=== PATIENT | male | born 1960 | race Caucasian/White ===

== ENCOUNTER 2018-01-14 04:30 | Observation (INO) | payer OTHER ==
[2018-01-14 05:01] LABS: ADD MAN DIFF? NO
[2018-01-14 05:02] LABS: BASOPHILS % 0.4 % (0.0-2.0); EOSINOPHILS # 0.1 10^3/ul (0.0-0.5); EOSINOPHILS % 1.7 % (0.0-7.0); HEMATOCRIT 42.2 % (42.0-52.0); LYMPHOCYTES # 1.9 10^3/ul (0.8-2.9); LYMPHOCYTES % 27.6 % (15.0-51.0); MEAN CORPUSCULAR HEMOGLOBIN 26.7 pg (29.0-33.0); MEAN CORPUSCULAR HGB CONC 33.2 g/dl (32.0-37.0); MEAN CORPUSCULAR VOLUME 80.4 fl (82.0-101.0); MEAN PLATELET VOLUME 10.6 fl (7.4-10.4); MONOCYTE # 0.7 10^3/ul (0.3-0.9); MONOCYTES % 9.7 % (0.0-11.0); NEUTROPHIL # 4.2 10^3/ul (1.6-7.5); PLATELET COUNT 181 10^3/UL (140-415); RED BLOOD COUNT 5.25 10^6/ul (4.70-6.10)
[2018-01-14 05:02] LABS: WHITE BLOOD COUNT 6.9 10^3/ul (4.8-10.8)
[2018-01-14 05:32] LABS: ANION GAP 10 (5-13); BLOOD UREA NITROGEN 22 mg/dl (7-20); CALCIUM 9.2 mg/dl (8.4-10.2); CARBON DIOXIDE 24 mmol/L (21-31); CHLORIDE 102 mmol/L (97-110); CREATININE 1.06 mg/dl (0.61-1.24); Estimated GFR > 60 mL/min (>60); POTASSIUM 4.7 mmol/L (3.5-5.1); SODIUM 136 mmol/L (135-144)
[2018-01-14 05:33] LABS: GLUCOSE 411 mg/dl (70-220)
[2018-01-14 05:43] LABS: TROPONIN-I < 0.012 ng/ml (0.000-0.120)
[2018-01-14] MEDS ORDERED: NACL 0.9% 3 ML SYG IV (06:30)
[2018-01-14] MEDS ORDERED: BISACODYL (EC) 5 MG TAB PO (06:30)
[2018-01-14] MEDS ORDERED: NITROGLYCERIN (SL) 0.4 MG TAB SL (06:30)
[2018-01-14] MEDS ORDERED: ONDANSETRON 4 MG INJ IV (06:30)
[2018-01-14] MEDS ORDERED: DEXTROSE 50% 50 ML SYRINGE IV ×2 (06:30)
[2018-01-14] MEDS ORDERED: GLUCOSE GEL 15 GRAM TUBE BUCCAL (06:30)
[2018-01-14] MEDS ORDERED: GLUCOSE GEL 15 GRAM TUBE PO ×2 (06:30)
[2018-01-14] MEDS ORDERED: DOCUSATE SODIUM 100 MG CAP PO (06:30)
[2018-01-14] MEDS ORDERED: morphine 2 MG INJ IV (06:30)
[2018-01-14] MEDS ORDERED: GLUCAGON 1 MG INJ IM (06:30)
[2018-01-14] MEDS: SOD CHLORIDE 0.9% 1,000 ML IV (06:39)
[2018-01-14] MEDS: INSULIN LISPRO 100 UNIT/ML VIAL SC (06:47)
[2018-01-14] MEDS: ENALAPRIL 20 MG TAB PO (09:49)
[2018-01-14] MEDS: ASPIRIN (EC) 81 MG TAB PO (09:49)
[2018-01-14] MEDS: CLOPIDOGREL 75 MG TAB PO (09:50)
[2018-01-14] MEDS: INSULIN ASPART [NOVOLOG] 3 ML PEN SC ×4 (09:58→20:18)
[2018-01-14 11:03] LABS: CREATINE KINASE 154 IU/L (23-200)
[2018-01-14 11:11] LABS: B-TYPE NATRIURETIC PEPTIDE 84 PG/ML (0-125)
[2018-01-14 11:15] LABS: CK INDEX 0.8; CK-MB 1.28 ng/ml (0.0-2.4); TROPONIN-I < 0.012 ng/ml (0.000-0.120)
[2018-01-14 12:22] LABS: HDL CHOLESTEROL 32 mg/dl (28-71); LDL CHOLESTEROL,CALCULATED 60 mg/dl; TRIGLYCERIDES 181 mg/dl (0-149)
[2018-01-14 12:22] LABS: CHOLESTEROL 128 mg/dl (100-200)
[2018-01-14] MEDS: INSULIN GLARGINE [LANTus] (100 UNITS/ML) SYG SC ×2 (12:29→20:03)
[2018-01-14] MEDS: LORAZEPAM 2 MG INJ IV (14:16)
[2018-01-14 14:33] LABS: HEMOGLOBIN A1C 9.3 % (0-5.9)
[2018-01-14] MEDS: SOD CHLORIDE 0.9% 100 ML (15:07)
[2018-01-14] MEDS: IOHEXOL 100 ML (15:08)
[2018-01-14] MEDS: NITROGLYCERIN AEROSOL (4.9 GM) (15:31)
[2018-01-14] MEDS: ISOSORBIDE MONONITRATE(SR)30 MG TAB PO (17:32)
[2018-01-14 18:21] LABS: CREATINE KINASE 144 IU/L (23-200)
[2018-01-14 18:34] LABS: CK INDEX 0.9; CK-MB 1.23 ng/ml (0.0-2.4); TROPONIN-I < 0.012 ng/ml (0.000-0.120)
[2018-01-14] MEDS: ACETAMINOPHEN 325 MG TAB PO (19:29)
[2018-01-14] MEDS: FUROSEMIDE 20 MG INJ IV (19:30)
[2018-01-14] MEDS: ATORVASTATIN 80 MG TAB PO ×2 (20:06→20:20)
[2018-01-14] MEDS: EZETIMIBE 10 MG TAB PO (20:06)
[2018-01-14] MEDS ORDERED: ATORVASTATIN 20 MG TAB PO (21:00)
[2018-01-14] MEDS ORDERED: NON-FORMULARY/PATIENT OWN MED (Ezetimibe/Simvastatin (Vytorin 10-40 mg Tablet) 1 EACH) PO (21:00)
[2018-01-15] MEDS: INSULIN ASPART [NOVOLOG] 3 ML PEN SC ×4 (02:15→12:38)
[2018-01-15] MEDS: ACCU-CHEK XX (02:15)
[2018-01-15] MEDS: ACETAMINOPHEN 325 MG TAB PO (05:55)
[2018-01-15 06:06] LABS: ADD MAN DIFF? NO
[2018-01-15 06:13] LABS: BASOPHILS % 0.5 % (0.0-2.0); EOSINOPHILS # 0.1 10^3/ul (0.0-0.5); EOSINOPHILS % 1.8 % (0.0-7.0); HEMOGLOBIN 13.9 g/dl (14.0-18.0); LYMPHOCYTES # 1.8 10^3/ul (0.8-2.9); LYMPHOCYTES % 24.4 % (15.0-51.0); MEAN CORPUSCULAR HEMOGLOBIN 26.4 pg (29.0-33.0); MEAN CORPUSCULAR HGB CONC 33.1 g/dl (32.0-37.0); MEAN CORPUSCULAR VOLUME 79.8 fl (82.0-101.0); MEAN PLATELET VOLUME 10.2 fl (7.4-10.4); MONOCYTE # 0.6 10^3/ul (0.3-0.9); MONOCYTES % 8.6 % (0.0-11.0); NEUTROPHIL # 4.8 10^3/ul (1.6-7.5); NEUTROPHILS % 64.3 % (39.0-77.0); PLATELET COUNT 195 10^3/UL (140-415); RED BLOOD COUNT 5.26 10^6/ul (4.70-6.10)
[2018-01-15 06:13] LABS: WHITE BLOOD COUNT 7.4 10^3/ul (4.8-10.8)
[2018-01-15 06:25] LABS: HEMOGLOBIN A1C 9.1 % (0-5.9)
[2018-01-15 07:00] LABS: ALANINE AMINOTRANSFERASE 37 IU/L (13-69); ALKALINE PHOSPHATASE 46 IU/L (42-121); ANION GAP 12 (5-13); ASPARTATE AMINO TRANSFERASE 27 IU/L (15-46); BILIRUBIN,INDIRECT 0.1 mg/dl (0-1.1); BILIRUBIN,TOTAL 0.1 mg/dl (0.2-1.3); BLOOD UREA NITROGEN 24 mg/dl (7-20); CALCIUM 9.5 mg/dl (8.4-10.2); CARBON DIOXIDE 22 mmol/L (21-31); CHLORIDE 102 mmol/L (97-110); CHOL/HDL RATIO 4.1 RATIO; CHOLESTEROL 137 mg/dl (100-200); CREATININE 1.05 mg/dl (0.61-1.24); Estimated GFR > 60 mL/min (>60); GLUCOSE 295 mg/dl (70-220); HDL CHOLESTEROL 33 mg/dl (28-71); LDL CHOLESTEROL,CALCULATED 35 mg/dl; MAGNESIUM 1.8 mg/dl (1.7-2.5); POTASSIUM 4.4 mmol/L (3.5-5.1); SODIUM 136 mmol/L (135-144); TOTAL PROTEIN 6.5 g/dl (6.1-8.1); TRIGLYCERIDES 344 mg/dl (0-149)
[2018-01-15] MEDS: ASPIRIN (EC) 81 MG TAB PO (08:18)
[2018-01-15] MEDS: CLOPIDOGREL 75 MG TAB PO (08:18)
[2018-01-15] MEDS: ISOSORBIDE MONONITRATE(SR)30 MG TAB PO (08:19)
[2018-01-15] MEDS: ENALAPRIL 20 MG TAB PO (08:19)
[2018-01-15] MEDS: ENOXAPARIN 40 MG/0.4 ML SYG SC (08:20)
[2018-01-15] MEDS: NICOTINE (14 MG/24 HR) PATCH TRANSDERM (11:18)
[2018-01-15] MEDS: RANOLAZINE (SR) 500 MG TAB PO ×2 (11:18→20:36)
[2018-01-15] MEDS ORDERED: INSULIN LISPRO 100 UNIT/ML VIAL SC (13:00)
[2018-01-15] MEDS: HUMALOG SC (18:22)
[2018-01-15] MEDS: EZETIMIBE 10 MG TAB PO (20:35)
[2018-01-15] MEDS: ATORVASTATIN 80 MG TAB PO (20:35)
[2018-01-16] MEDS: ACCU-CHEK XX (02:00)
[2018-01-16 06:13] LABS: ADD MAN DIFF? NO
[2018-01-16 06:16] LABS: WHITE BLOOD COUNT 7.4 10^3/ul (4.8-10.8)
[2018-01-16 06:16] LABS: BASOPHILS % 0.5 % (0.0-2.0); EOSINOPHILS # 0.2 10^3/ul (0.0-0.5); HEMATOCRIT 46.2 % (42.0-52.0); HEMOGLOBIN 14.6 g/dl (14.0-18.0); LYMPHOCYTES # 2.1 10^3/ul (0.8-2.9); LYMPHOCYTES % 27.8 % (15.0-51.0); MEAN CORPUSCULAR HEMOGLOBIN 27.2 pg (29.0-33.0); MEAN CORPUSCULAR HGB CONC 31.6 g/dl (32.0-37.0); MEAN PLATELET VOLUME 10.7 fl (7.4-10.4); MONOCYTE # 0.7 10^3/ul (0.3-0.9); MONOCYTES % 9.8 % (0.0-11.0); NEUTROPHIL # 4.4 10^3/ul (1.6-7.5); NEUTROPHILS % 59.5 % (39.0-77.0); PLATELET COUNT 167 10^3/UL (140-415); RED BLOOD COUNT 5.37 10^6/ul (4.70-6.10); RED CELL DISTRIBUTION WIDTH 13.3 % (11.5-14.5)
[2018-01-16 06:38] LABS: PHOSPHORUS 4.1 mg/dl (2.5-4.9)
[2018-01-16 06:38] LABS: MAGNESIUM 1.9 mg/dl (1.7-2.5)
[2018-01-16 06:50] LABS: ANION GAP 12 (5-13); BLOOD UREA NITROGEN 19 mg/dl (7-20); CALCIUM 9.4 mg/dl (8.4-10.2); CARBON DIOXIDE 24 mmol/L (21-31); CHLORIDE 104 mmol/L (97-110); CREATININE 0.99 mg/dl (0.61-1.24); Estimated GFR > 60 mL/min (>60); GLUCOSE 175 mg/dl (70-220); POTASSIUM 4.4 mmol/L (3.5-5.1); SODIUM 140 mmol/L (135-144)
[2018-01-16] MEDS: HUMALOG SC ×2 (07:45→11:38)
[2018-01-16] MEDS: CLOPIDOGREL 75 MG TAB PO (08:00)
[2018-01-16] MEDS: ASPIRIN (EC) 81 MG TAB PO (08:01)
[2018-01-16] MEDS: NICOTINE (14 MG/24 HR) PATCH TRANSDERM (08:01)
[2018-01-16] MEDS: RANOLAZINE (SR) 500 MG TAB PO (08:01)
[2018-01-16] MEDS: ENALAPRIL 20 MG TAB PO (08:03)
[2018-01-16] MEDS: ENOXAPARIN 40 MG/0.4 ML SYG SC (08:11)
== END 2018-01-16 13:46 | disposition home or self-care (01) ==
LOC: E/R 04:30 → 6WM 05:57
DX: R07.9 Chest pain, unspecified (principal); I25.5 Ischemic cardiomyopathy; I11.0 Hypertensive heart disease with heart failure; I50.23 Acute on chronic systolic (congestive) heart failure; I25.10 Atherosclerotic heart disease of native coronary artery without angina pectoris; Z95.5 Presence of coronary angioplasty implant and graft; E78.5 Hyperlipidemia, unspecified; E11.9 Type 2 diabetes mellitus without complications; E66.9 Obesity, unspecified; Z68.31 Body mass index [BMI] 31.0-31.9, adult; L40.9 Psoriasis, unspecified; Z79.4 Long term (current) use of insulin; Z79.82 Long term (current) use of aspirin; I25.2 Old myocardial infarction; F17.200 Nicotine dependence, unspecified, uncomplicated
CPT/HCPCS: 36415; 71045; 75574; 80048; 80053; 80061; 82550; 82553; 82962; 83036; 83735; 83880; 84100; 84443; 84484; 85025; 93005; 93306; 99285-25; G0378